=== PATIENT | male | born 1945 ===

== ENCOUNTER → 2024-10-17 | Outpatient (CLI) | payer MEDICARE, OTHER ==
[~2024-10-17] VITALS: Ht 175.3 cm; Wt 84.5 kg
[~2024-10-17] MED LIST: ATOR10TA PO; METF-1211 PO
[2024-10-17 09:26] VITALS: BP 144/79; PULSE 78; RESP 17; TEMP 97.7; O2SAT 96
== END | disposition home or self-care (01) ==
LOC: SRCNTR 09:13
PROVIDERS: ATTEND Internal Medicine
DX: E11.9 Type 2 diabetes mellitus without complications (principal); E78.5 Hyperlipidemia, unspecified; J18.9 Pneumonia, unspecified organism; J44.0 Chronic obstructive pulmonary disease with (acute) lower respiratory infection; J47.0 Bronchiectasis with acute lower respiratory infection; J84.10 Pulmonary fibrosis, unspecified; Z79.84 Long term (current) use of oral hypoglycemic drugs; Z79.899 Other long term (current) drug therapy; Z87.01 Personal history of pneumonia (recurrent); Z87.891 Personal history of nicotine dependence
CPT/HCPCS: G0463; Z7500